=== PATIENT | female | born 1955 | race Caucasian/White ===

== ENCOUNTER → 2016-10-05 | Outpatient (CLI) | payer OTHER ==
[~2016-10-05] MED LIST: CLON0.5T3 PO; IBUP-1427 PO; LXP/20 PO; ONDA4TAB10 SL; OXYC1TAB3 PO
--- NOTE | 2016-10-05 17:09 | MAMMOGRAPHY REPORT ---
BILATERAL DIGITAL SCREENING MAMMOGRAM TOMOSYNTHESIS WITH CAD: 10/05/2016 CLINICAL HISTORY: Routine screening. Patient has no complaints. TECHNIQUE: Breast tomosynthesis in addition to standard 2D mammography was performed. Current study was also evaluated with a Computer Aided Detection (CAD) system. COMPARISON: Comparison is made to exams dated: 12/12/2007 and 12/14/2010 mammogram - [facility]. BREAST COMPOSITION: There are scattered areas of fibroglandular density in both breasts. FINDINGS: No suspicious masses, calcifications, or areas of architectural distortion are noted in e ither breast. There has been no significant interval change compared to prior exams. Bilateral reed gn-appearing calcifications are not significantly changed. IMPRESSION: ACR BI-RADS CATEGORY 2: BENIGN There is no mammographic evidence of malignancy. A 1 year screening mammogram is recommended. The p atient will receive written notification of the results. Approximately 10% of breast cancers are not detected with mammography. A negative mammographic repor t should not delay biopsy if a clinically suggestive mass is present. Blessing Arrieta M.D. ah/:10/05/2016 15:48:55 Video News Editor: Yue RAMOS(R)(M), [facility] letter sent: Normal 1/2 BI-RADS Code: ACR BI-RADS Category 2: Benign
== END | disposition home or self-care (01) ==
LOC: C.MAMM 11:03
PROVIDERS: ATTEND Nurse Practitioner Family
DX: Z12.31 Encounter for screening mammogram for malignant neoplasm of breast (principal)

== ENCOUNTER 2017-02-16 13:04 | Emergency (ER) | payer OTHER ==
[~2017-02-16] VITALS: Ht 154.9 cm; Wt 79.0 kg
[2017-02-16 13:13] VITALS: TEMP 36.5; Ht 154.9 cm; Wt 79.0 kg
[2017-02-16] MEDS ORDERED: SODIUM CHLORIDE 0.9% 1000ML 1,000 ML IV STA (13:39)
--- NOTE | 2017-02-16 13:46 | EMERGENCY ROOM VISIT NOTE ---
History First contact with patient: 13:28 Chief Complaint: FALL Stated Complaint: FALL/SHOULDER/LEG PAIN History of Present Illness The patient is a 61 year old female who presents to the Emergency Room via ALS ambulance for evaluation after a fall from height. The patient states that she was at work and climbed the ladder to check the security system. Reportedly, the latter was not fully opened and it came out from under her. She fell to the ground on the right side. She complains of contusion to the right side of her head. She complains of right shoulder pain, right elbow pain and abrasion, right wrist pain and right tib-fib pain. The patient has not gotten up or attempted to ambulate. She was given 100 g IV fentanyl in route by ALS. She rates her discomfort an 8/10. She denies any loss of consciousness. She denies any pain in her chest or trouble breathing. She denies any abdominal pain, nausea or vomiting. She states her tetanus is up-to-date. Review of Systems A 10 system review of systems was completed with positives and pertinent negatives listed in the HPI. Social History Smoking Status: Current Every Day Smoker Occupation Status: employed Current/Historical Medications Scheduled Escitalopram Oxalate (Escitalopram Oxalate), 1 TAB PO DAILY Ibuprofen Tab (Motrin), 1 TAB PO TID Ondasetron Odt (Zofran Odt), 4 MG SL Q6H Scheduled PRN Clonazepam (Klonopin), 0.25 TAB PO for Anxiety Oxycodone Ir (Roxicodone Ir), 1-2 TAB PO Q4H PRN for Pain Allergies Coded Allergies: No Known Allergies (Unverified , 02/16/17) Physical Exam Vital Signs Date Time Temp Pulse Resp B/P (MAP) Pulse Ox O2 Delivery O2 Flow Rate FiO2 02/16/17 17:39 73 16 140/75 96 Room Air 02/16/17 16:59 80 16 118/75 96 Room Air 02/16/17 15:45 72 16 132/85 96 Room Air 02/16/17 14:53 74 02/16/17 14:46 97 Room Air 02/16/17 14:05 63 18 135/81 98 02/16/17 13:13 36.5 86 18 146/93 95 Room Air Physical Exam VITALS: Vitals are noted on the nurse's note and reviewed by myself. Vital signs stable. GENERAL: This is a 61-year-old female, in no acute distress, nondiaphoretic, well-developed well-nourished. SKIN: There is a contusion and nonbleeding laceration to the right side of the forehead. There is no abrasion and edema to the right elbow. There is moderate ecchymosis and edema to the right proximal tib-fib. There is no tenting of the skin. Capillary reflex less than 2 seconds. HEAD: Contusion to the right side of the forehead. EARS: External auditory canals clear, tympanic membranes pearly hernandez without erythema or effusion bilaterally. No hemotympanum. No rivas sign. No mastoid tenderness. EYES: Pupils equal round and reactive to light and accommodation. Conjunctivae without injection, sclerae without icterus. Extraocular movements intact. NOSE: Patent, turbinates without inflammation or discharge. No sinus tenderness. No septal hematoma or bleeding. FACE: No facial tenderness. Full range of motion of the jaw without tenderness. MOUTH: Mucous membranes moist. Pharynx without erythema or exudate. Uvula midline. Airway patent. Tongue does not deviate. NECK: Supple without nuchal rigidity. Cervical spine is nontender. Full range of motion of the neck without tenderness. No JVD. HEART: Regular rate and rhythm without murmurs gallops or rubs. LUNGS: Clear to auscultation bilaterally without wheezes, rales or rhonchi. No dullness to percussion. No retractions or accessory muscle use. No chest tenderness. ABDOMEN: Positive bowel sounds x 4. Normal tympanic percussion. Soft, nontender, without masses or organomegaly. MUSCULOSKELETAL: There is tenderness to palpation of the right shoulder without ecchymosis, edema or deformity. There is nonbleeding abrasion to the right elbow with minimal tenderness. There is mild tenderness to palpation to the right distal radius with snuffbox tenderness. There is no deformity. He there is marked tenderness to palpation, ecchymosis and edema to the right proximal tib-fib. The remaining extremities are unremarkable otherwise. NEUROLOGIC: The patient is awake, alert and oriented to person, place, time and events. No focal neurologic deficit. Medical Decision & Procedures ER Provider Diagnostic Interpretation: [~ rep ct add3]] CT SCAN OF THE CERVICAL SPINE CLINICAL HISTORY: Trauma. Fall from ladder. COMPARISON STUDY: No priors. TECHNIQUE: CT scan of the cervical spine is performed from the skull base to the upper thoracic spine. Images are reviewed in the axial, sagittal, and coronal planes. IV contrast was not administered for this examination. CT DOSE: 398.51 mGycm FINDINGS: Skeletal structures: The skeletal structures are osteopenic. There is no evidence of fracture or subluxation involving the cervical spine. Vertebral body height and alignment are maintained. There is straightening of the cervical lordosis. The odontoid process and lateral masses are intact. The atlantoaxial articulation is preserved. The spinous processes appear intact. Small anterior osteophytes are seen from C4 to C7. Mild degenerative end plate sclerosis is seen at C4-C5 through C6-C7. There is mild to moderate multilevel cervical spondylosis. Uncovertebral and facet arthropathy contribute sterile foraminal narrowing at several levels. Intervertebral discs: There is moderate degenerative disc space narrowing seen at C4-C5, C5-C6, and C6-C7. The remaining disc spaces appear maintained. Central canal: Posterior disc osteophyte complexes at C4-C5, C5-C6, and C6-C7 likely contribute to acquired compromise of the central canal. Soft tissues: The prevertebral and paraspinous soft tissues are within normal limits. Calvarium: The visualized calvarium at the skull base appears intact. Brain parenchyma: Partially visualized brain parenchyma the skull base is within normal limits. Sinuses and mastoids: The visualized paranasal sinuses are clear. The mastoid air cells are well pneumatized. Lung apices: Emphysematous change is seen in the upper lobes. Imaged upper lobe lung parenchyma is otherwise clear. IMPRESSION: 1. There is no evidence of fracture or subluxation involving the cervical spine. 2. Osteopenia and spondylotic change as above. 3. Emphysema. RIGHT ELBOW 3 VIEWS CLINICAL HISTORY: Fall with right elbow pain. FINDINGS: 3 views the right elbow are obtained. No prior studies are available for comparison at the time of dictation. Skeletal structures are osteopenic. There is no radiographic evidence of right elbow fracture. The joint spaces appear maintained. No joint effusion is seen. Mild dorsal soft tissue edema is noted. IMPRESSION: Dorsal soft tissue swelling with no radiographic evidence of right elbow fracture. [~ rep ct add3]] CT OF THE HEAD WITHOUT CONTRAST CLINICAL HISTORY: Fall from height, right frontal hematoma COMPARISON STUDY: No previous studies for comparison. CT DOSE: 638.56 mGycm TECHNIQUE: Helical axial images of the head were obtained without IV contrast. Automated exposure control was utilized for the study. FINDINGS: No acute intracranial hemorrhage, midline shift or mass effect is present. Findings normal for age. Ventricular system is normal. Basilar cisterns are patent. Moderate white matter hypodensities are present. There is no calvarial fracture. Visualized portions of the mastoid air cells are clear. There is mild mucosal thickening of the sinuses. IMPRESSION: 1. No acute intracranial findings. 2. No calvarial fracture. RIGHT WRIST W/NAVICULAR 5 VIEWS CLINICAL HISTORY: Right wrist pain status post trauma. Fall from ladder. COMPARISON: None. DISCUSSION: No fractures or dislocations are visualized. IMPRESSION: No fractures identified. RIGHT SHOULDER MIN 2 VIEWS ROUTINE CLINICAL HISTORY: Right shoulder pain following fall. COMPARISON: None FINDINGS: Alignment of the right shoulder is anatomic. No acute fracture is identified. Mild arthritis of the acromioclavicular joint is noted. IMPRESSION: No acute fracture or dislocation of the right shoulder. RIGHT TIBIA AND FIBULA 2 VIEWS CLINICAL HISTORY: Fall with right leg pain. FINDINGS: AP and crosstable lateral views of the right tibia and fibula are obtained. No prior studies are available for comparison at the time of dictation. The skeletal structures are osteopenic. There is a comminuted fracture of the proximal tibial metaphysis. This extends to the medial tibial plateau. There is minimal medial distraction of the largest fragment. There is no significant depression of the tibial plateau. Overlying soft tissue edema is observed. The distal tibia appears intact. The fibula and distal femur appear preserved.. Lipohemarthrosis is noted at the knee. The ankle joint is grossly maintained. A dorsal calcaneal enthesophyte is noted. IMPRESSION: 1. Comminuted fracture of the proximal tibial metaphysis which extends to the tibial plateau. There is no depression of the medial tibial plateau. 2. No additional fracture is seen. 3. Lipohemarthrosis is identified at the knee. Laboratory Results 02/16/17 14:00 Red Blood Count 4.29, Mean Corpuscular Volume 92.1, Mean Corpuscular Hemoglobin 31.7, Mean Corpuscular Hemoglobin Concent 34.4, Mean Platelet Volume 9.1, Neutrophils (%) (Auto) 80.6, Lymphocytes (%) (Auto) 10.9, Monocytes (%) (Auto) 7.5, Eosinophils (%) (Auto) 0.4, Basophils (%) (Auto) 0.3, Neutrophils # (Auto) 10.70, Lymphocytes # (Auto) 1.45, Monocytes # (Auto) 1.00, Eosinophils # (Auto) 0.05, Basophils # (Auto) 0.04 02/16/17 14:00 Test 02/16/17 14:00 02/16/17 14:36 White Blood Count 13.28 K/uL (4.8-10.8) Red Blood Count 4.29 M/uL (4.2-5.4) Hemoglobin 13.6 g/dL (12.0-16.0) Hematocrit 39.5 % (37-47) Mean Corpuscular Volume 92.1 fL (80-100) Mean Corpuscular Hemoglobin 31.7 pg (25-34) Mean Corpuscular Hemoglobin Concent 34.4 g/dl (32-36) Platelet Count 265 K/uL (130-400) Mean Platelet Volume 9.1 fL (7.4-10.4) Neutrophils (%) (Auto) 80.6 % Lymphocytes (%) (Auto) 10.9 % Monocytes (%) (Auto) 7.5 % Eosinophils (%) (Auto) 0.4 % Basophils (%) (Auto) 0.3 % Neutrophils # (Auto) 10.70 K/uL (1.4-6.5) Lymphocytes # (Auto) 1.45 K/uL (1.2-3.4) Monocytes # (Auto) 1.00 K/uL (0.11-0.59) Eosinophils # (Auto) 0.05 K/uL (0-0.5) Basophils # (Auto) 0.04 K/uL (0-0.2) RDW Standard Deviation 45.5 fL (36.4-46.3) RDW Coefficient of Variation 13.5 % (11.5-14.5) Immature Granulocyte % (Auto) 0.3 % Immature Granulocyte # (Auto) 0.04 K/uL (0.00-0.02) Prothrombin Time 10.7 SECONDS (9.0-12.0) Prothromb Time International Ratio 1.0 (0.9-1.1) Activated Partial Thromboplast Time 26.6 SECONDS (21.0-31.0) Partial Thromboplastin Ratio 1.0 Anion Gap 9.0 mmol/L (3-11) Est Creatinine Clear Calc Drug Dose 64.7 ml/min Estimated GFR () 82.8 Estimated GFR (Non- 71.4 BUN/Creatinine Ratio 21.4 (10-20) Calcium Level 9.0 mg/dl (8.5-10.1) Total Bilirubin 0.4 mg/dl (0.2-1) Aspartate Amino Transf (AST/SGOT) 18 U/L (15-37) Alanine Aminotransferase (ALT/SGPT) 27 U/L (12-78) Alkaline Phosphatase 71 U/L (45-117) Total Protein 7.7 gm/dl (6.4-8.2) Albumin 3.8 gm/dl (3.4-5.0) Globulin 3.9 gm/dl (2.5-4.0) Albumin/Globulin Ratio 1.0 (0.9-2) Urine Color YELLOW Urine Appearance CLEAR (CLEAR) Urine pH 6.0 (4.5-7.5) Urine Specific [place] 1.011 (1.000-1.030) Urine Protein NEG (NEG) Urine Glucose (UA) NEG (NEG) Urine Ketones NEG (NEG) Urine Occult Blood NEG (NEG) Urine Nitrite NEG (NEG) Urine Bilirubin NEG (NEG) Urine Urobilinogen NEG (NEG) Urine Leukocyte Esterase NEG (NEG) Medications Administered Medications (Trade) Dose Ordered Sig/Lauren Route Start Time Stop Time Status Last Admin Dose Admin Sodium Chloride 1,000 ml @ 999 mls/hr Q1H1M STAT IV 02/16/17 13:39 02/16/17 14:39 DC 02/16/17 14:19 999 MLS/HR Fentanyl Citrate (Fentanyl Inj) 100 mcg NOW STAT IV 02/16/17 14:38 02/16/17 14:42 DC 02/16/17 14:46 100 MCG Ondansetron HCl (Zofran Inj) 4 mg STK-MED ONCE .ROUTE 02/16/17 16:54 02/16/17 16:55 DC 02/16/17 16:58 4 MG Oxycodone HCl (Roxicodone Immediate Rel Tab) 5 mg NOW STAT PO 02/16/17 18:17 02/16/17 18:18 DC 02/16/17 18:23 5 MG ED Course The patient was seen and examined. Previous visits were reviewed. The patient underwent the above imaging. The patient has a right proximal tibia fracture that extends to the tibial plateau. It is not significantly displaced. The imaging otherwise does not reveal any significant traumatic finding. She does not have any significant electrolyte abnormality, anemia. She has a slight leukocytosis which may be stress-induced. There is no evidence for urinary tract infection or hematuria on urinalysis. The patient was hydrated with normal saline She was given 100 g IV fentanyl The patient also received IV fentanyl in the ambulance The patient was given 4 mg IV Zofran initially began to feel nauseated She was given 5 mg OxyIR prior to discharge The patient was placed in a knee immobilizer by the emergency department hearing aid repair technician and the position was satisfactory. The patient initially refused a walker and wanted only crutches. She was unable to comfortably use the crutches and was given a walker. She requested to have both the crutches and walker. I discussed the case with Peng Castillo PA-C. He is in agreement with a knee immobilizer. He recommends a follow-up in the office in approximately one week. The patient was advised of this. At the time of discharge, the patient became very nauseated and had significant pain and had any trouble moving. She was unable to get to the bathroom. She was given 4 mg IV Zofran but still had significant difficulty getting up or getting to the bathroom. Some of the nausea may be secondary to the fentanyl. I advised her that I give her additional medication with caution as she could become more nauseated. She did not wish to have any injections as the IV had been removed by this time. I discussed the possibility of admission to the hospital for pain control. The patient adamantly refused to stay in the hospital. Therefore, she was given 5 mg OxyIR and was able to maneuver herself to get out of the emergency department. . She'll be given a prescription for pain medication. I also sent a prescription for Zofran in the event it makes her nauseated. She should return to the ER with any worsening symptoms. The case was discussed with Dr. Drake who agrees with the assessment and treatment plan. Medication Reconciliation: I attest that I have personally reviewed the patient' s current medication list. Blood pressure screening: The patient was found to have normal blood pressure on screening and does not require follow-up Medical Decision The differential diagnosis includes intracranial bleeding, skull fracture, cervical spine fracture, extremity fracture, contusion, abrasion, among others [place] Drug Monitoring Program Search Results: patient reviewed within database, no issues identified Impression Primary Impression: Closed fracture of right proximal tibia Additional Impressions: Fall Closed head injury Multiple contusions Departure Information Dispostion Home / Self-Care Condition GOOD Prescriptions Ondasetron Odt (ZOFRAN ODT) 4 Mg Tab 4 MG SL Q6H for Nausea, #10 TAB Prov: Kylee Vasquez PA-C 02/16/17 Oxycodone Ir (Roxicodone Ir) 5 Mg Tab 1-2 TAB PO Q4H Y for Pain, #36 TAB For Initial Treatment Prov: Kylee Vasquez PA-C 02/16/17 Referrals Constanza Clarke (PCP) Roberto Carlos Patton D.O. Patient Instructions ED Compartment Syndrome At Risk For, ED Head Injury Closed, Fx Leg Arm, [facility] Additional Instructions Motrin 600 mg every 6-8 hours for moderate pain Oxy IR 1-2 tablets every 4-6 hrs as needed for worse pain. No driving or alcohol use with Oxy IR. Do not bear weight on the right leg; use crutches Wear the immobilizer until seen by orthopedics Contact orthopedics first thing in the morning for a follow-up appointment in approximately one week Return with any worsening symptoms, severe pain, coolness of the foot, numbness or generalized worsening symptoms Problem Qualifiers Primary Impression: Closed fracture of right proximal tibia Encounter type: initial encounter Fracture morphology: unspecified fracture morphology Qualified Codes: S82.101A - Unspecified fracture of upper end of right tibia, initial encounter for closed fracture Additional Impressions: Fall Encounter type: initial encounter Qualified Codes: W19.XXXA - Unspecified fall, initial encounter Closed head injury Encounter type: initial encounter Qualified Codes: S09.90XA - Unspecified injury of head, initial encounter
[2017-02-16 14:14] LABS: BASO % 0.3 %; BASO ABS # 0.04 K/uL (0-0.2); COMPLETE YES; EOS % 0.4 %; HEMATOCRIT 39.5 % (37-47); IG% 0.3 %; LYMPH % 10.9 %; LYMPH ABS # 1.45 K/uL (1.2-3.4); MEAN CELL VOLUME 92.1 fL (80-100); MEAN CORPUSCULAR HEMOGLOBIN 31.7 pg (25-34); MEAN CORPUSCULAR HGB CONC 34.4 g/dl (32-36); MEAN PLATELET VOLUME 9.1 fL (7.4-10.4); MONO % 7.5 %; NEUT % 80.6 %; PLATELET COUNT 265 K/uL (130-400); RED BLOOD COUNT 4.29 M/uL (4.2-5.4); WHITE BLOOD COUNT 13.28 K/uL (4.8-10.8)
[2017-02-16 14:28] LABS: PROTHROMBIN TIME (PATIENT) 10.7 SECONDS (9.0-12.0)
--- NOTE | 2017-02-16 14:29 | DIAGNOSTIC IMAGING REPORT ---
CT OF THE HEAD WITHOUT CONTRAST CLINICAL HISTORY: Fall from height, right frontal hematoma COMPARISON STUDY: No previous studies for comparison. CT DOSE: 638.56 mGycm TECHNIQUE: Helical axial images of the head were obtained without IV contrast. Automated exposure control was utilized for the study. FINDINGS: No acute intracranial hemorrhage, midline shift or mass effect is present. Findings normal for age. Ventricular system is normal. Basilar cisterns are patent. Moderate white matter hypodensities are present. There is no calvarial fracture. Visualized portions of the mastoid air cells are clear. There is mild mucosal thickening of the sinuses. IMPRESSION: 1. No acute intracranial findings. 2. No calvarial fracture. Electronically signed by: Gibson Beltran M.D. 02/16/2017 2:28 PM Dictated Date/Time: 02/16/2017 2:24 PM
--- NOTE | 2017-02-16 14:30 | DIAGNOSTIC IMAGING REPORT ---
CT SCAN OF THE CERVICAL SPINE CLINICAL HISTORY: Trauma. Fall from ladder. COMPARISON STUDY: No priors. TECHNIQUE: CT scan of the cervical spine is performed from the skull base to the upper thoracic spine. Images are reviewed in the axial, sagittal, and coronal planes. IV contrast was not administered for this examination. CT DOSE: 398.51 mGycm FINDINGS: Skeletal structures: The skeletal structures are osteopenic. There is no evidence of fracture or subluxation involving the cervical spine. Vertebral body height and alignment are maintained. There is straightening of the cervical lordosis. The odontoid process and lateral masses are intact. The atlantoaxial articulation is preserved. The spinous processes appear intact. Small anterior osteophytes are seen from C4 to C7. Mild degenerative end plate sclerosis is seen at C4-C5 through C6-C7. There is mild to moderate multilevel cervical spondylosis. Uncovertebral and facet arthropathy contribute sterile foraminal narrowing at several levels. Intervertebral discs: There is moderate degenerative disc space narrowing seen at C4-C5, C5-C6, and C6-C7. The remaining disc spaces appear maintained. Central canal: Posterior disc osteophyte complexes at C4-C5, C5-C6, and C6-C7 likely contribute to acquired compromise of the central canal. Soft tissues: The prevertebral and paraspinous soft tissues are within normal limits. Calvarium: The visualized calvarium at the skull base appears intact. Brain parenchyma: Partially visualized brain parenchyma the skull base is within normal limits. Sinuses and mastoids: The visualized paranasal sinuses are clear. The mastoid air cells are well pneumatized. Lung apices: Emphysematous change is seen in the upper lobes. Imaged upper lobe lung parenchyma is otherwise clear. IMPRESSION: 1. There is no evidence of fracture or subluxation involving the cervical spine. 2. Osteopenia and spondylotic change as above. 3. Emphysema. Electronically signed by: Emiliano Caballero M.D. 02/16/2017 2:29 PM Dictated Date/Time: 02/16/2017 2:26 PM
[2017-02-16] MEDS ORDERED: FENTANYL CITRATE INJ 50 MCG/1 ML 2 ML VIAL IV STA (14:38)
[2017-02-16 14:41] LABS: BUN/CREATININE RATIO 21.4 (10-20); CREATININE 0.88 mg/dl (0.60-1.20); POTASSIUM 4.1 mmol/L (3.5-5.1)
[2017-02-16 14:46] VITALS: O2SAT 97
[2017-02-16 14:51] LABS: URINE APPEARANCE CLEAR (CLEAR); URINE BILIRUBIN NEG (NEG); URINE COLOR YELLOW; URINE NITRITE NEG (NEG); URINE SPECIFIC GRAVITY 1.011 (1.000-1.030); UROBILINOGEN NEG (NEG); ZZUR CULT IF INDIC CLEAN CATCH NO
[2017-02-16 15:04] LABS: MANUAL MICROSCOPIC REQUIRED? NO; REVIEW REQ? NO
--- NOTE | 2017-02-16 15:47 | DIAGNOSTIC IMAGING REPORT ---
RIGHT ELBOW 3 VIEWS CLINICAL HISTORY: Fall with right elbow pain. FINDINGS: 3 views the right elbow are obtained. No prior studies are available for comparison at the time of dictation. Skeletal structures are osteopenic. There is no radiographic evidence of right elbow fracture. The joint spaces appear maintained. No joint effusion is seen. Mild dorsal soft tissue edema is noted. IMPRESSION: Dorsal soft tissue swelling with no radiographic evidence of right elbow fracture. Electronically signed by: Emiliano Caballero M.D. 02/16/2017 3:45 PM Dictated Date/Time: 02/16/2017 3:44 PM
--- NOTE | 2017-02-16 15:47 | DIAGNOSTIC IMAGING REPORT ---
RIGHT WRIST W/NAVICULAR 5 VIEWS CLINICAL HISTORY: Right wrist pain status post trauma. Fall from ladder. COMPARISON: None. DISCUSSION: No fractures or dislocations are visualized. IMPRESSION: No fractures identified. Electronically signed by: Leno Sánchez M.D. 02/16/2017 3:46 PM Dictated Date/Time: 02/16/2017 3:45 PM
--- NOTE | 2017-02-16 15:49 | DIAGNOSTIC IMAGING REPORT ---
RIGHT TIBIA AND FIBULA 2 VIEWS CLINICAL HISTORY: Fall with right leg pain. FINDINGS: AP and crosstable lateral views of the right tibia and fibula are obtained. No prior studies are available for comparison at the time of dictation. The skeletal structures are osteopenic. There is a comminuted fracture of the proximal tibial metaphysis. This extends to the medial tibial plateau. There is minimal medial distraction of the largest fragment. There is no significant depression of the tibial plateau. Overlying soft tissue edema is observed. The distal tibia appears intact. The fibula and distal femur appear preserved.. Lipohemarthrosis is noted at the knee. The ankle joint is grossly maintained. A dorsal calcaneal enthesophyte is noted. IMPRESSION: 1. Comminuted fracture of the proximal tibial metaphysis which extends to the tibial plateau. There is no depression of the medial tibial plateau. 2. No additional fracture is seen. 3. Lipohemarthrosis is identified at the knee. Electronically signed by: Emiliano Caballero M.D. 02/16/2017 3:48 PM Dictated Date/Time: 02/16/2017 3:46 PM
--- NOTE | 2017-02-16 15:52 | DIAGNOSTIC IMAGING REPORT ---
RIGHT SHOULDER MIN 2 VIEWS ROUTINE CLINICAL HISTORY: Right shoulder pain following fall. COMPARISON: None FINDINGS: Alignment of the right shoulder is anatomic. No acute fracture is identified. Mild arthritis of the acromioclavicular joint is noted. IMPRESSION: No acute fracture or dislocation of the right shoulder. Electronically signed by: Gibson Beltran M.D. 02/16/2017 3:51 PM Dictated Date/Time: 02/16/2017 3:49 PM
[2017-02-16] MEDS ORDERED: CLON0.5T3 PO (16:03)
[2017-02-16] MEDS ORDERED: LXP/20 PO (16:03)
[2017-02-16] MEDS ORDERED: IBUP-1427 PO (16:03)
[2017-02-16] MEDS ORDERED: OXYC1TAB3 PO (16:29)
[2017-02-16] MEDS ORDERED: ONDANSETRON INJ 2 MG/ML 2 ML VIAL ONE (16:54)
[2017-02-16] MEDS ORDERED: ONDA4TAB10 SL (17:32)
[2017-02-16 17:39] VITALS: BP 140/75; PULSE 73; O2SAT 96
[2017-02-16] MEDS ORDERED: OXYCODONE HCL IR 5 MG TAB (IMMEDIATE RELEASE) PO STA (18:17)
== END 2017-02-16 19:08 | disposition home or self-care (01) ==
LOC: EDBD 13:04 → C.EDA 13:05
DX: S82.201A Unspecified fracture of shaft of right tibia, initial encounter for closed fracture (principal); S09.90XA Unspecified injury of head, initial encounter; T14.8 Other injury of unspecified body region; W17.89XA Other fall from one level to another, initial encounter; F17.200 Nicotine dependence, unspecified, uncomplicated; Z79.899 Other long term (current) drug therapy